=== PATIENT | male | born 1995 | race Two or more races ===

== ENCOUNTER 2017-04-17 15:46 | Emergency (ER) | payer OTHER ==
[2017-04-17 15:50] VITALS: BP 136/78
--- NOTE | 2017-04-17 16:08 | PHYS DOC ---
Adult General Chief Complaint Chief Complaint: TESTICULAR PAIN OR INJURY HPI HPI Patient is a 22-year-old male presenting to the emergency department for evaluation of right testicle pain has been an issue for the past several weeks. He was seen at the [facility] emergency department several weeks ago and had urine testing done which showed possible epididymitis however his STD testing came back negative. He says he did not get a shot he was just discharged on doxycycline and he had no pain while he was on the doxycycline but the pain returned 2 days ago. Patient says it is not there all the time rather it is worse when he is moving and it is a dull ache but causes him no fevers chills nausea vomiting or other systemic symptoms. He did not have an ultrasound done. Review of Systems Review of Systems Constitutional: Denies fever or chills [] GI: Denies abdominal pain, nausea, vomiting, bloody stools or diarrhea [] : Denies dysuria or hematuria [] Musculoskeletal: Denies back pain or joint pain [] Physical Exam Physical Exam Constitutional: Well developed, well nourished, no acute distress, non-toxic appearance. [] Cardiovascular:Heart rate regular rhythm, no murmur [] Lungs & Thorax: Bilateral breath sounds clear to auscultation [] Abdomen: Bowel sounds normal, soft, no tenderness, no masses, no pulsatile masses. [] : Pain on palpation or R epididymis. Normal cremasteric. testicle not tender and free floating with no swelling. No redness, warmth, or discharged noted. EKG EKG [] Radiology/Procedures Radiology/Procedures [] Course & Med Decision Making Course & Med Decision Making I recommended ultrasound have her patient asked how long it would be and I told him we do not have an instrumentation technician on site so it could be up to an hour. Patient says that he was not willing to wait. He verbalizes understanding that a life-threatening diagnosis such as an abscess or torsion could be missed. Patient says that he is not sexually active and his STD came back negative so I will give him a shot of Rocephin here since he did not get one initially and then send him home on Levaquin. He lives in [place] and says that he will follow down there and follow with the urologist as an outpatient. I told him to use scrotal support take ibuprofen for pain and come back to the ED with any new worsening pain fevers vomiting or other general concerns. Dragon Disclaimer Dragon Disclaimer This chart was dictated in whole or in part using Voice Recognition software in a busy, high-work load, and often noisy Emergency Department environment. It may contain unintended and wholly unrecognized errors or omissions. Departure Departure: Impression: Primary Impression: Epididymitis Disposition: HOME, SELF-CARE Condition: STABLE Referrals: PCP,NO (PCP) Patient Instructions: Epididymitis Additional Instructions: TAKE 400MG OF IBUPROFEN EVERY 6 HOURS AND THE NORCO FOR BREAKTHROUGH PAIN. USE SCROTAL SUPPORT. FOLLOW WITH A UROLOGIST OR YOUR PCP NEXT WEEK. COME BACK TO THE ED WITH ANY NEW OR WORSENING PAIN, FEVERS, VOMITING, OR OTHER GENERAL CONCERNS. THANK YOU! Scripts Hydrocodone Bit/Acetaminophen (NORCO 5-325 TABLET) 1 Each Tablet 1 TAB PO PRN Q6HRS Y for PAIN, #14 TAB 0 Refills Prov: MAMADOU GARZA DO 04/17/17 Levofloxacin (LEVAQUIN) 500 Mg Tablet 1 TAB PO DAILY, #7 TAB Prov: MAMADOU GARZA DO 04/17/17 MAMADOU GARZA DO Apr 17, 2017 16:08
[2017-04-17] MEDS ORDERED: LEVO500T59 PO (16:23)
[2017-04-17] MEDS ORDERED: HYDR-971 PO (16:23)
[2017-04-17] MEDS ORDERED: cefTRIAXone IM 250 MG VIAL IM ONE (16:45)
== END 2017-04-17 16:50 | disposition home or self-care (01) ==
LOC: ER 15:46
DX: N45.1 Epididymitis (principal)
CPT/HCPCS: 96372; 99283; J0696